=== PATIENT | female | born 2000 | race Caucasian/White ===

== ENCOUNTER 2022-08-19 15:47 | Emergency (ER) | payer MEDICAID ==
[~2022-08-19] VITALS: Ht 175.3 cm; Wt 118.0 kg
[2022-08-19 15:50] VITALS: BP 128/46
[2022-08-19] MEDS ORDERED: IBUP-2029 MT (17:29)
== END 2022-08-19 17:53 | disposition home or self-care (01) ==
LOC: ER 15:47
DX: H92.03 Otalgia, bilateral (principal)
CPT/HCPCS: 99281